=== PATIENT | male | born 1985 | race Caucasian/White ===

== ENCOUNTER 2020-11-08 04:20 | Inpatient (IN) | payer MEDICAID, SELFPAY ==
[2020-11-08] VITALS (9 sets, daily range): BP systolic 104–137; BP diastolic 52–83; PULSE 56–88; RESP 16–22; TEMP 36.3–37.1; O2SAT 96–99; BMI 20.9
--- NOTE | 2020-11-08 | ECG_ITS ---
Test Reason : CP Blood Pressure : / mmHG Vent. Rate : 082 BPM Atrial Rate : 082 BPM P-R Int : 168 ms QRS Dur : 106 ms QT Int : 370 ms P-R-T Axes : 065 046 009 degrees QTc Int : 432 ms Normal sinus rhythm Possible Left atrial enlargement Incomplete right bundle branch block Borderline ECG No previous ECGs available Referred By: Lisa Hoover Electronically Signed By:TYRA AL MD
--- NOTE | ~2020-11-08 | CT_ITS ---
EXAMINATION: CT ANGIOGRAM OF THE CHEST WITH AND WITHOUT CONTRAST (CT PULMONARY ANGIOGRAM FOR PE) CLINICAL INFORMATION: Chest pain COMPARISON: None TECHNIQUE: Prior to contrast administration, noncontrast localization images were obtained. Subsequently, multidetector volumetric imaging was performed from the thoracic inlet to below the diaphragms following the administration of 80 mL Omnipaque 350 intravenous contrast. No contrast reaction reported Sagittal, coronal, and MIP oblique sagittal reformatted images were obtained on the CT workstation, uploaded to PACS, and reviewed. This CT examination was performed using dose optimization techniques as appropriate, variously including the following: *Automated exposure control *Adjustment of mA and/or kV according to patient size (this includes techniques or standardized protocols for targeted exams where dose is matched to indication/reason for exam; i.e. extremities or head) *Use of iterative reconstruction technique Total exam dose-length product 302 mGy-cm FINDINGS: QUALITY OF STUDY/CONTRAST BOLUS: Satisfactory. PULMONARY ARTERIES: No central or segmental pulmonary emboli. THORACIC AORTA: No aneurysm or dissection. LUNG: The lungs are well-expanded with groundglass attenuation seen in the right lower lobe laterally along the subpleural segment. No consolidation, mass or pulmonary nodule seen. PLEURA: No pleural effusion or pneumothorax. MEDIASTINUM: Normal heart size. No pericardial effusion. No hilar or mediastinal lymphadenopathy. No evidence of septal bowing or right heart strain. CHEST WALL/AXILLA: No axillary or internal mammary lymph nodes seen. OSSEOUS STRUCTURES: No acute or suspicious osseous abnormality. UPPER ABDOMEN: The liver is diffusely attenuated but no focal lesion seen. Spleen, bilateral adrenal glands appears unremarkable. No reflux of contrast into the hepatic veins to suggest elevated right heart pressures. CT/CT angio chest PE protocol IMPRESSION: No evidence of PE. No evidence of aortic dissection or aneurysm. Unusual shape groundglass attenuation seen in right lower lobe. Question developing infiltrate, contusion versus inflammatory process. Any history of trauma. VTE: negative
--- NOTE | ~2020-11-08 | XR_ITS ---
EXAMINATION: XR CHEST CLINICAL INFORMATION: Shortness of breath COMPARISON: None TECHNIQUE: Frontal view of the chest was obtained. FINDINGS: Cardiac and mediastinal contours are normal. Pulmonary vasculature is unremarkable. Lungs are clear. No consolidation, pneumothorax, or pleural effusion. No acute osseous findings. XR/XR chest 1V IMPRESSION: Unremarkable examination.
--- NOTE | 2020-11-08 04:45 | ED.CHESTPAIN ---
HPI - Chest Pain General Chief Complaint: Chest Pain Stated Complaint: Back pain Time Seen by Provider: 11/08/20 04:43 History of Present Illness HPI narrative: 35-year-old male presents today with having pain to the right posterior chest. The pain is been ongoing for few days. It is worse with movement or deep inspiration. History of blood clots in the past. Patient claims that caused him to lose his arm on the right side. Patient is post be on Eliquis. He has been out of his medication for few months now. Recently moved from [place]. Now has insurance in [place]. No fever no chills. No diaphoresis. Positive chest pain. No history of coronary artery disease. No history of diabetes, hypertension, high cholesterol, smoking. No history of recreational drug use no history of IV drug use Related Data Allergies Allergy/AdvReac Type Severity Reaction Status Date / Time No Known Allergies Allergy Verified 11/08/20 04:31 Review of Systems Review of Systems: Constitutional: No Weight loss, No Fever, No Chills, No Night Sweats, No Fatigue, No Malaise ENT/Mouth: No Hearing loss, No Ear Pain, No Nasal Congestion, No Sinus Pain, No Hoarseness, No sore throat, No Rhinorrhea, No Swallowing Difficulty Eyes: No Eye Pain, No Swelling, No Redness, No Foreign Body, No Discharge, No Vision Changes Cardiovascular: No Chest Pain, No SOB, No Dyspnea on Exertion, No Orthopnea, No Edema, No Palpitations Respiratory: Positive chest pain on right posterior back Gastrointestinal: No Nausea, No Vomiting, No Diarrhea, No Constipation, No abdominal Pain, No Hematochezia, No Melena Genitourinary: no irregular bleeding, No Dysuria, No Urinary Frequency, No Hematuria, No Urinary Incontinence, No Urgency, No Flank Pain, No Urinary Flow Changes, No Hesitancy Musculoskeletal: No joint pain, No Myalgias, No Joint Swelling Skin: No Skin Lesions, No rash Neuro: No Weakness, No Numbness, No Paresthesias, No Loss of Consciousness, No Dizziness, No Headache Psych: No Anxiety/Panic, No Depression, No SI/HI/AH/VH, No Social Issues, Heme/Lymph: No Bruising, No Bleeding,No Lymphadenopathy Endocrine: No Polyuria, No Polydipsia, No Temperature Intolerance [facility] Past Medical History Attestation statement: The following information was validated with the patient. Medical History Amputation of arm Clotting disorder Surgical History History of lung surgery Physical Exam Vital Signs: Vital Signs: Last Vital Signs Temp 98.8 F 11/08/20 04:32 Pulse 78 11/08/20 06:00 Resp 22 H 11/08/20 06:00 BP 126/75 11/08/20 06:00 Pulse Ox 99 11/08/20 06:00 Body Mass Index 20.9 Appearance: Alert. Oriented X3. No acute distress. Eyes: Pupils equal, round and reactive to light. ENT: Pharynx normal. Neck: Normal inspection. Neck supple. No lymph nodes noted. No crepitus CVS: Normal heart rate and rhythm. Pulses normal. Normal S1 and S2 Respiratory: No respiratory distress. Breath sounds normal. No Wheezing. No rales Abdomen: Soft and nontender. No rigidity. No distention. good BS x4 Skin: Skin warm and dry. Normal skin color. Normal skin turgor. Extremities: No lower extremity edema. Neurovascular intact to all extremities. No Lacerations. No Rash Neuro: Oriented X 3. No motor deficit. No sensory deficit. Moving all extermities. No slurred speech Procedures Central Line Placement Right Femoral: Time Out Performed: Yes MD Prep: mask, gown, gloves and other Central Line Prep: Povidone-Iodine 1% Local Anesthetic: lidocaine 1% Amount of anesthesia used (mL): 5 Post Procedure: sutured in place Patient Tolerated Procedure: well Complications: none MDM - Chest Pain MDM Narrative Medical decision making narrative: Positive chest pain with a history of blood clots. Will get a CTA of the chest to rule out the possibility of PE. Labs were drawn troponin drawn. Patient's EKG showed a sinus pattern heart rate was 80 VT QRS QT within normal limits there is T-wave inversion in lead 3. incomplete right bundle backed box noted. Chest x-ray did not show any acute evidence of pneumonia, pneumothorax. Lab Data Result diagrams: 11/08/20 06:37 11/08/20 06:37 Labs: Lab Results 11/08/20 11/08/20 Range/Units 06:37 06:40 WBC 10.7 (4.8-10.8) X10*3/uL RBC 3.60 L (4.60-5.80) X10*6/uL Hgb 11.5 L (14.0-18.0) g/dl Hct 34.4 L (42-52) % MCV 95.6 (80-98) fL MCH 31.9 (27.0-33.0) pg MCHC 33.4 (31.0-36.0) g/dl RDW 12.3 (11.0-16.0) % Plt Count 250 (160-400) X10*3/uL MPV 8.7 L (9.4-12.4) fL Immature Gran % (Auto) 0.2 (0.0-0.4) % Neut % (Auto) 72.6 (45-73) % Lymph % (Auto) 15.2 L (20-40) % [place] % (Auto) 10.9 (2-11) % Eos % (Auto) 0.7 (0-4) % Baso % (Auto) 0.4 (0-2) % Lymph # (Auto) 1.6 (1.2-4.9) X10*3/uL [place] # (Auto) 1.2 (0.1-1.2) X10*3/uL Eos # (Auto) 0.1 (0.0-0.4) X10*3/uL Baso # (Auto) 0.0 (0.0-0.2) X10*3/uL Abs Immat Gran (auto) 0.02 (0.00-0.03) X10*3/uL Absolute Neuts (auto) 7.8 (2.0-8.3) X10*3/uL Absolute Nucleated RBC 0.000 (0.0-0.012) X10*3/uL Nucleated RBC % (auto) 0.0 (0.0-0.2) /100WBC Urine Color YELLOW Urine Appearance CLEAR Urine pH 6.0 (5.0-8.0) Ur Specific [place] 1.020 (1.005-1.025) Urine Protein NEG (NEG-TRACE) MG/DL Urine Glucose (UA) NEG (NEG) MG/DL Urine Ketones 5 (NEG) MG/DL Urine Blood NEG (NEG) Urine Nitrite NEG (NEG) Ur Leukocyte Esterase NEG (NEG)
[2020-11-08] MEDS: HYDROmorphone HCl 0.5 MG/0.5 ML SYRINGE IVPUSH ×2 (06:14→19:45)
[2020-11-08 06:45] LABS: MANUAL DIFF FLAG NO
[2020-11-08 06:47] LABS: Basophils Percent Auto 0.4 % (0-2); Eosinophils Absolute Auto 0.1 X10*3/uL (0.0-0.4); Eosinophils Percent Auto 0.7 % (0-4); Hematocrit 34.4 % (42-52); Hemoglobin 11.5 g/dl (14.0-18.0); Imm Gran Abs Auto 0.02 X10*3/uL (0.00-0.03); Imm Gran Pct Auto 0.2 % (0.0-0.4); Lymphocytes Absolute Auto 1.6 X10*3/uL (1.2-4.9); Lymphocytes Percent Auto 15.2 % (20-40); Mean Corpuscular HGB Conc 33.4 g/dl (31.0-36.0); Mean Corpuscular Hemoglobin 31.9 pg (27.0-33.0); Mean Corpuscular Volume 95.6 fL (80-98); Mean Platelet Volume 8.7 fL (9.4-12.4); Monocytes Absolute Auto 1.2 X10*3/uL (0.1-1.2); Monocytes Percent Auto 10.9 % (2-11); Neutrophils Absolute Auto 7.8 X10*3/uL (2.0-8.3); Neutrophils Percent Auto 72.6 % (45-73); Platelet Count 250 X10*3/uL (160-400); Red Cell Distribution Width 12.3 % (11.0-16.0); White Blood Count 10.7 X10*3/uL (4.8-10.8)
[2020-11-08 06:48] LABS: Glucose Urine UA NEG (NEG); Leukocyte Esterase Urine NEG (NEG); Nitrite Urine NEG (NEG); Urine Blood NEG (NEG); Urine Ketones 5 MG/DL (NEG); Urine Protein NEG (NEG-TRACE)
[2020-11-08 06:50] LABS: Appearance Urine CLEAR; Color Urine YELLOW
[2020-11-08 07:00] LABS: INTERNATIONAL NORM RATIO 1.4 (0.9-1.1); Prothrombin Time 16.2 SEC (10.8-13.0)
[2020-11-08] MEDS: HYDROmorphone HCl 1 MG/ML SYRINGE IVPUSH ×2 (07:10→09:35)
[2020-11-08 07:14] LABS: Troponin-I High Sensitivity < 3.5 ng/L (<3.5-35.0)
[2020-11-08 07:15] LABS: Anion Gap 10 (12-20); Blood Urea Nitrogen 16 mg/dL (9-16); Calcium 9.1 mg/dL (8.4-10.2); Carbon Dioxide 26 mmol/L (22-29); Chloride 104 mmol/L (96-108); Creatinine Clr Calc Pharmacy 134.8; Estimated Glomerular Filt Rate > 60; Glucose Random 112 mg/dL (60-115); Potassium 3.8 mmol/L (3.3-5.1); Sodium 136 mmol/L (135-145)
[2020-11-08 07:18] LABS: Alanine Aminotransferase 15 U/L (0-40); Albumin Level 4.3 g/dL (3.5-5.0); Alkaline Phosphatase 54 U/L (39-117); Aspartate Amino Transferase 18 U/L (5-37); Bilirubin Direct 0.4 mg/dL (0.0-0.5); Bilirubin Total 1.1 mg/dL (0.0-1.0); Total Protein 6.8 g/dL (6.5-8.0)
[2020-11-08 07:22] LABS: D Dimer 507 NG/ML
[2020-11-08] MEDS: iohexoL 350 MG/ML 100 ML INFUS..BTL IV (08:41)
[2020-11-08] MEDS: Ketorolac Tromethamine 30 MG/ML VIAL IVPUSH (10:23)
[2020-11-08] MEDS: cefTRIAXone sodium 1 GM in 0.9 % Sodium Chloride 50 ML IV ×2 (10:24→21:48)
[2020-11-08] MEDS: vancomycin HCL 1,250 MG in 0.9 % Sodium Chloride 250 ML 166.67 MG IV ×2 (10:27→22:17)
[2020-11-08] MEDS: 0.9 % Sodium Chloride 1,000 ML 999 ML IV (10:31)
[2020-11-08 10:43] LABS: COVID-19 Test Negative (Negative)
[2020-11-08 10:58] LABS: Lactic Acid 0.8 mmol/L (0.5-2.0)
--- NOTE | 2020-11-08 11:15 | PM.IMHP ---
History of Present Illness Date of Service: 11/08/20 Chief Complaint: right chest pain 35M presented with Right-sided chest pain for 3 days. Pain is worse on deep inspiration. Is 10/10. Relieved by opiates. Denies shortness of breath, cough, fever, chills. Patient uses IV heroin. 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 in ED noted to have RLL opacity on CT c/w developing pneumonia. Review of Systems Review of Systems: Constitutional: Denies fever, denies Chills Eyes: denies blurry vision ENT: denies sore throat CVS: chest pain Respiratory: Denies dyspnea GI: no abdominal pain : denies dysuria MSK: denies neck pain Skin: denies rash Neuro: denies specific motor weakness Psych: denies suicidal ideation Endocrine: denies heat/cold intoleratnce Hematologic: denies easy bleeding Allergy: denies hives [facility] Medical History (Updated 11/08/20 @ 11:23 by Hussain Sousa MD) Amputation of arm Family history: reviewed and not pertinent Surgical History History of lung surgery Social History (Updated 11/08/20 @ 11:24 by Hussain Sousa MD) Alcohol intake: never Patient Tobacco Use Status: Current everyday Tobacco user Substance Use Type: IV Drugs Advance Directives: No Meds Allergies Allergy/AdvReac Type Severity Reaction Status Date / Time No Known Allergies Allergy Verified 11/08/20 04:31 Active Medications: Current Medications Generic Name Dose Route Start Last Admin Trade Name Freq PRN Reason Stop Dose Admin Vancomycin HCl 1,250 mg/ 250 mls @ 166.667 mls/hr 11/08/20 09:57 11/08/20 10:27 Sodium Chloride IV 11/08/20 11:26 166.67 mls/hr ONCE ONE Administration Vancomycin HCl 1,250 mg/ 250 mls @ 166.667 mls/hr 11/08/20 22:00 Sodium Chloride IV Q12H [facility] Pharmacy Consult 1 each 11/08/20 09:57 Consult Rx Vancomycin Dosing MISCELLANE DAILY PRN Consult order Home Medications Medication Instructions Recorded Confirmed Last Taken Type No Known Home Meds 11/08/20 11/08/20 Unknown History Physical Exam Vital Signs and Narrative: Vital Signs: Last Vital Signs Temp 98.8 F 11/08/20 04:32 Pulse 88 11/08/20 09:38 Resp 22 H 11/08/20 09:38 BP 118/52 L 11/08/20 09:38 Pulse Ox 99 11/08/20 06:00 Body Mass Index 20.9 General: appears uncomfortable HEENT: atraumatic Neck: normal to visual inspection CVS: S1, S2, RRR Resp: CTA bilateral Chest: non tender GI: soft, non tender, non distended : no CVA tenderness Skin: no rashes Extremities: no edema Neuro: Oriented X3, grossly intact Psych: cooperative Results Labs CBC and Chem 7: 11/08/20 06:37 11/08/20 06:37 Labs: Laboratory Results - last 24 hr 11/08/20 11/08/20 11/08/20 06:37 06:37 06:37 MCV 95.6 MCH 31.9 MCHC 33.4 RDW 12.3 Plt Count 250 MPV 8.7 L Immature Gran % (Auto) 0.2 Neut % (Auto) 72.6 Lymph % (Auto) 15.2 L [place] % (Auto) 10.9 Eos % (Auto) 0.7 Baso % (Auto) 0.4 Lymph # (Auto) 1.6 [place] # (Auto) 1.2 Eos # (Auto) 0.1 Baso # (Auto) 0.0 Abs Immat Gran (auto) 0.02 Absolute Neuts (auto) 7.8 Absolute Nucleated RBC 0.000 Nucleated RBC % (auto) 0.0 PT 16.2 H INR 1.4 H D-Dimer 507 Anion Gap Estim Creat Clear Calc Estimated GFR Random Glucose Lactic Acid Calcium Total Bilirubin 1.1 H Direct Bilirubin 0.4 AST 18 ALT 15 Alkaline Phosphatase 54 Troponin I High Sens Total Protein 6.8 Albumin 4.3 Urine Color Urine Appearance Urine pH Ur Specific [place] Urine Protein Urine Glucose (UA) Urine Ketones Urine Blood Urine Nitrite Ur Leukocyte Esterase COVID-19 (PRASANNA) COVID-19 Clin Com 11/08/20 11/08/20 11/08/20 06:37 06:37 06:40 MCV MCH MCHC RDW Plt Count MPV Immature Gran % (Auto) Neut % (Auto) Lymph % (Auto) [place] % (Auto) Eos % (Auto) Baso % (Auto) Lymph # (Auto) [place] # (Auto) Eos # (Auto) Baso # (Auto) Abs Immat Gran (auto) Absolute Neuts (auto) Absolute Nucleated RBC Nucleated RBC % (auto) PT INR D-Dimer Anion Gap 10 L Estim Creat Clear Calc 134.8 Estimated GFR > 60 Random Glucose 112 Lactic Acid Calcium 9.1 Total Bilirubin Direct Bilirubin AST ALT Alkaline Phosphatase Troponin I High Sens < 3.5 Total Protein Albumin Urine Color YELLOW Urine Appearance CLEAR Urine pH 6.0 Ur Specific [place] 1.020 Urine Protein NEG Urine Glucose (UA) NEG Urine Ketones 5 Urine Blood NEG Urine Nitrite NEG Ur Leukocyte Esterase NEG COVID-19 (PRASANNA) COVID-19 Clin Com 11/08/20 11/08/20 10:20 10:20 MCV MCH MCHC RDW Plt Count MPV Immature Gran % (Auto) Neut % (Auto) Lymph % (Auto) [place] % (Auto) Eos % (Auto) Baso % (Auto) Lymph # (Auto) [place] # (Auto) Eos # (Auto) Baso # (Auto) Abs Immat Gran (auto) Absolute Neuts (auto) Absolute Nucleated RBC Nucleated RBC % (auto) PT INR D-Dimer Anion Gap Estim Creat Clear Calc Estimated GFR Random Glucose Lactic Acid 0.8 Calcium Total Bilirubin Direct Bilirubin AST ALT Alkaline Phosphatase Troponin I High Sens Total Protein Albumin Urine Color Urine Appearance Urine pH Ur Specific [place] Urine Protein Urine Glucose (UA) Urine Ketones Urine Blood Urine Nitrite Ur Leukocyte Esterase COVID-19 (PRASANNA) Negative COVID-19 Clin Com See Note Imaging Radiologist's Impressions: Impressions Chest CTA 11/08/20 04:43 IMPRESSION: No evidence of PE. No evidence of aortic dissection or aneurysm. Unusual shape groundglass attenuation seen in right lower lobe. Question developing infiltrate, contusion versus inflammatory process. Any history of trauma. VTE: negative Chest X-Ray 11/08/20 04:43 IMPRESSION: Unremarkable examination. Assessment and Plan (1) Polysubstance (including opioids) dependence with physiological dependence: Status: Acute 35M presented with right sided chest pain, found to have pneuomnia pnuemonia with concern for systemic infection given IVDA vanc, ceftriaxone follow up cultures opioid dependence addication eval check hcv, hiv Quality Stroke Does the patient have a stroke diagnosis?: No VTE Prior VTE?: No VTE Risk Level:: Medical - moderate - high VTE Device Contraindication: Treatment Not Indicated VTE Drug Contraindication: N/A - Med Ordered
--- NOTE | 2020-11-08 13:36 | MHC.CM.PN ---
Attempted to meet with patient in regards to discharge planning. Patient is currently sleeping. Will attempt to meet again. Continue to monitor for d/c needs.
[2020-11-08] MEDS: Morphine Sulfate 2 MG/ML CARTRIDGE IVPUSH ×3 (14:06→22:34)
--- NOTE | 2020-11-08 14:58 | PC.NURSE ---
CALL TO GIVE REPORT- STATES THEY ARE IN REPORT NO ANSWER
--- NOTE | 2020-11-08 15:14 | PC.NURSE ---
Gave report to Aundrea on Med surg
--- NOTE | 2020-11-08 16:09 | HO.ADDICT_ITS ---
History of Present Illness Date of Service: 11/08/2020 Chief Complaint: pneumonia Reason for Consult: Opioid use disorder Requesting physician: Hussain Sousa Discussed with referring provider: Yes Sources of Information: patient interviewed and chart reviewed HPI Narrative: patient is a 35-year-old male with history of opioid use disorder pending admission for pneumonia. Consult requested to evaluate and treat opioid use disorder. Patient seen in room 13 of the main ED, he was currently awaiting transfer up to medical floor. Patient was pacing around the room and grimacing upon this bond writer's arrival. Reporting significant pain and discomfort lower left back. He recently received morphine which she reports was ineffective. Brief substance use history ( due to patient's level of physical discomfort ): - patient reports that he is currently using between 1-2 bundles of heroin daily. He states he will use intranasal or intravenous. - patient denies any alcohol or cocaine use. - patient reports he was previously on Suboxone, denies any history of meth adone. - reports last use was several hours prior to presenting to the emergency department. Past Psychiatric History: Not reviewed Medical Evaluation Reviewed: Yes Personal & Social History: pending review -- per H&P it appears patient is new to this area had previously been living in [place]. Review of Systems Constitutional: Reports as per HPI, Reports body ache(s) and Reports malaise Gastrointestinal: Denies diarrhea, Denies loose stools, Denies nausea and Denies vomiting Diagnostics Vital Signs (24Hr): Vital Signs - 24 hr 11/08/20 04:32 11/08/20 06:00 11/08/20 09:38 Temperature 98.8 F Pulse Rate 84 78 88 Respiratory Rate 18 22 H 22 H Blood Pressure 110/65 126/75 118/52 L Pulse Oximetry 96 99 11/08/20 14:06 11/08/20 14:11 11/08/20 15:41 Temperature 97.4 F Pulse Rate 85 84 Respiratory Rate 16 18 20 Blood Pressure 133/76 104/59 L Pulse Oximetry 97 Body Mass Index 20.9 Labs Results: 11/08/20 06:37 11/08/20 06:37 Labs: Laboratory Results - last 48 hr 11/08/20 11/08/20 11/08/20 06:37 06:37 06:37 WBC 10.7 RBC 3.60 L Hgb 11.5 L Hct 34.4 L MCV 95.6 MCH 31.9 MCHC 33.4 RDW 12.3 Plt Count 250 MPV 8.7 L Immature Gran % (Auto) 0.2 Neut % (Auto) 72.6 Lymph % (Auto) 15.2 L [place] % (Auto) 10.9 Eos % (Auto) 0.7 Baso % (Auto) 0.4 Lymph # (Auto) 1.6 [place] # (Auto) 1.2 Eos # (Auto) 0.1 Baso # (Auto) 0.0 Abs Immat Gran (auto) 0.02 Absolute Neuts (auto) 7.8 Absolute Nucleated RBC 0.000 Nucleated RBC % (auto) 0.0 PT 16.2 H INR 1.4 H D-Dimer 507 Sodium Potassium Chloride Carbon Dioxide Anion Gap BUN Creatinine Estim Creat Clear Calc Estimated GFR Random Glucose Lactic Acid Calcium Total Bilirubin 1.1 H Direct Bilirubin 0.4 AST 18 ALT 15 Alkaline Phosphatase 54 Troponin I High Sens Total Protein 6.8 Albumin 4.3 Urine Color Urine Appearance Urine pH Ur Specific [place] Urine Protein Urine Glucose (UA) Urine Ketones Urine Blood Urine Nitrite Ur Leukocyte Esterase COVID-19 (PRASANNA) COVID-[employer] 11/08/20 11/08/20 11/08/20 06:37 06:37 06:40 WBC RBC Hgb Hct MCV MCH MCHC RDW Plt Count MPV Immature Gran % (Auto) Neut % (Auto) Lymph % (Auto) [place] % (Auto) Eos % (Auto) Baso % (Auto) Lymph # (Auto) [place] # (Auto) Eos # (Auto) Baso # (Auto) Abs Immat Gran (auto) Absolute Neuts (auto) Absolute Nucleated RBC Nucleated RBC % (auto) PT INR D-Dimer Sodium 136 Potassium 3.8 Chloride 104 Carbon Dioxide 26 Anion Gap 10 L BUN 16 Creatinine 0.71 Estim Creat Clear Calc 134.8 Estimated GFR > 60 Random Glucose 112 Lactic Acid Calcium 9.1 Total Bilirubin Direct Bilirubin AST ALT Alkaline Phosphatase Troponin I High Sens < 3.5 Total Protein Albumin Urine Color YELLOW Urine Appearance CLEAR Urine pH 6.0 Ur Specific [place] 1.020 Urine Protein NEG Urine Glucose (UA) NEG Urine Ketones 5 Urine Blood NEG Urine Nitrite NEG Ur Leukocyte Esterase NEG COVID-19 (PRASANNA) COVID-19 [employer] 11/08/20 11/08/20 10:20 10:20 WBC RBC Hgb Hct MCV MCH MCHC RDW Plt Count MPV Immature Gran % (Auto) Neut % (Auto) Lymph % (Auto) [place] % (Auto) Eos % (Auto) Baso % (Auto) Lymph # (Auto) [place] # (Auto) Eos # (Auto) Baso # (Auto) Abs Immat Gran (auto) Absolute Neuts (auto) Absolute Nucleated RBC Nucleated RBC % (auto) PT INR D-Dimer Sodium Potassium Chloride Carbon Dioxide Anion Gap BUN Creatinine Estim Creat Clear Calc Estimated GFR Random Glucose Lactic Acid 0.8 Calcium Total Bilirubin Direct Bilirubin AST ALT Alkaline Phosphatase Troponin I High Sens Total Protein Albumin Urine Color Urine Appearance Urine pH Ur Specific [place] Urine Protein Urine Glucose (UA) Urine Ketones Urine Blood Urine Nitrite Ur Leukocyte Esterase COVID-19 (PRASANNA) Negative COVID-19 Clin Com See Note Imaging Radiology Impressions: ITS Impressions Chest CTA 11/08/20 04:43 IMPRESSION: No evidence of PE. No evidence of aortic dissection or aneurysm. Unusual shape groundglass attenuation seen in right lower lobe. Question developing infiltrate, contusion versus inflammatory process. Any history of trauma. VTE: negative Chest X-Ray 11/08/20 04:43 IMPRESSION: Unremarkable examination. Mental Status Exam Mental Status Exam Patient Appearance: Appropriate Patient Orientation: Person, Place, Time and Situation Level of Consciousness: Awake, Appropriate, Restless and Alert Patient Behavior: Appropriate, Anxious and Pacing Mood Description: Anxious Affect Description: Anxious Ability to Follow Directions: Excellent Speech Pattern: Clear Hallucinations: None Thought Process: Intact Thought Content: positive for Intact Judgement: Fair Medications Medications Current Medications Generic Name Dose Route Start Last Admin Trade Name Kena PRN Reason Stop Dose Admin Acetaminophen 650 mg 11/08/20 11:22 Acetaminophen 325 Mg Tablet PO Q6H PRN Pain, Mild (Pain Scale 1-3) Vancomycin HCl 1,250 mg/ 250 mls @ 166.667 mls/hr 11/08/20 22:00 Sodium Chloride IV Q12H [facility] Ceftriaxone Sodium 1 gm/ 50 mls @ 100 mls/hr 11/08/20 22:00 Sodium Chloride IV Q12H TOM Methadone HCl 15 mg 11/08/20 15:33 Methadone Hcl 5 Mg Tablet PO 11/08/20 15:34 ONCE ONE Morphine Sulfate 2 mg 11/08/20 11:22 11/08/20 14:06 Morphine Sulfate 2 Mg/Ml Cartridge IVPUSH 2 mg Q3H PRN Administration pain Pharmacy Consult 1 each 11/08/20 09:57 Consult Rx Vancomycin Dosing MISCELLANE DAILY PRN Consult order Rivaroxaban 10 mg 11/09/20 09:00 Rivaroxaban 10 Mg Tablet PO DAILY TOM Sodium Chloride 3 ml 11/08/20 16:00 0.9 % Sodium Chloride Flush 3 Ml Syringe IVFLUSH QSHIFT TOM Allergies Allergies Allergy/AdvReac Type Severity Reaction Status Date / Time No Known Allergies Allergy Verified 11/08/20 04:31 Assessment & Plan Assessment & Plan (1) Opioid use disorder: Status: Acute Code(s): F11.99 - Opioid use, unspecified with unspecified opioid-induced disorder Recommendations: * Discuss treatment options, Suboxone not an option at this time given need for pain medication. * Patient agreeable to trialing methadone. Denies any cardiac history. Will start with 15 mg now and if necessary could receive additional 5-10 mg later this evening. * Will reassess in the morning and obtain better substance use history Greater than 50% of the session was spent on counseling and/or coordination of care [facility] Past Medical History Medical History (Updated 11/08/20 @ 16:15 by Shannon Macias CNP) Amputation of arm Family History Family history: reviewed and not pertinent Surgical History Surgical History History of lung surgery Social History Social History (Updated 11/08/20 @ 11:24 by Hussain Sousa MD) Household Members: Friend(s) Housing: House Alcohol intake: never Patient Tobacco Use Status: Current everyday Tobacco user Tobacco use type: Cigarette Cigarette Packs Per Day: 0.3 Cigarettes Per Day: 6.0 Smoked in Last 30 Days: Yes Patient Interested in Nicotine Replacement: No Use of substances other than those prescribed or required for medical reasons: Yes Substance Use Type: Heroin Substance Use Frequency: Daily Last Used Substance: Just Prior to Admission Currently Displaying Signs/Symptoms of Drug Intoxication Withdrawal: No Any prior treatment program specific to substance use: Yes Have you been hit, kicked, punched, or otherwise hurt by someone within the past year? If so, by whom?: No Do you feel safe in your current relationship?: No Current Relationship Is there a partner from a previous relationship who is making you feel unsafe now?: No Are you made to feel afraid or neglected: No Advance Directives: No Do you have thoughts of harming others: None Do you have a plan to hurt others: No Plan Recently lost weight without trying: No Nutrition Risks: No Nutritional Risk Poor oral hygiene: No
[2020-11-08] MEDS: clonazePAM 0.5 MG TABLET PO ×2 (16:44→22:51)
[2020-11-08] MEDS: hydrOXYzine HCL 25 MG TABLET PO (16:45)
[2020-11-08] MEDS: 0.9 % Sodium Chloride Flush 3 ML SYRINGE IVFLUSH (18:28)
[2020-11-08] MEDS: Ibuprofen 400 MG TABLET PO (18:58)
--- NOTE | 2020-11-08 19:19 | PC.NURSE ---
pt very angry,restless, pacing around his room ,hitting objects in his room. Stated that he is very unease because of the pain. Security was called to the pt room to reinforce the safety. Dr Lars tyler contacted, new meds ordered:cloanzepam,atarax,Ibuprofen. One time Methadone was given as per Shannon Macias NP. Pt's anxiety subsided, cooperative with the nursing staff
[2020-11-08] MEDS: Lidocaine 4 % Patch ADH..PATCH 1 PATCH TRANSDERMA (19:44)
[2020-11-08] MEDS: Acetaminophen 325 MG TABLET 650 MG PO (22:51)
[2020-11-09] VITALS (10 sets, daily range): BP systolic 103–120; BP diastolic 56–86; PULSE 67–88; RESP 18–20; TEMP 36.6–37.1; O2SAT 97–99
[2020-11-09] MEDS: Morphine Sulfate 2 MG/ML CARTRIDGE IVPUSH ×6 (01:33→22:31)
[2020-11-09] MEDS: HYDROmorphone HCl 1 MG/ML SYRINGE IVPUSH ×2 (02:48→23:41)
[2020-11-09] MEDS: LORazepam 2 MG/ML VIAL 1 MG IVPUSH (03:44)
--- NOTE | 2020-11-09 04:11 | PC.NURSE ---
Addendum entered by Gopi Mcdonald RN 11/09/20 06:12: camera observer called r/t patient bathroom alone..patient found naked taking a shower...assisted from shower..instructed not to shower d/t tlc right groin and peripheral prn adaptor...back to bed...tlc dressing redressed...site remains patent..am lab work drawn via tlc Addendum entered by Gopi Mcdonald RN 11/09/20 04:17: LAB REPORTS BLOOD CULTURES X2- GPC IN CLUSTERS...RECEIVING VANCOMYCIN/ROCEPHIN... UPDATED Original Note: CARE ASSUMED 23:15...AWAKE...ALERT..ORIENTED X3...RESPIRATIONS EASY ON ROOM AIR...MED-SURG STATUS...C/O PERSISTANT -02/20 RIGHT LOWER CHEST PAIN WORSENED WITH COUGH/INSPIRATION...MEDICATED PRN MORPHINE 01:33 WITH MINIMAL EFFECT PER PATIENT...ANXIOUS R/T TO PERSISTANT PAIN...PRN ATARAX GIVEN 02:15...CONTINUES TP C/O PERSISTANT PAIN...DR MCCLELLAN UPDATED..MEDICATED WITH DILAUDID 1 MG IV X1 WITH TRANSIENT EFFECT....DOZED APPROX 45 THEN AWAKE...INITIALLY HAD DECLINED THEN ACCEPTED ATIVAN 1MG IV X1 FOR RESTLESNESS....BRIEFLY NAPPED..NOW AWAKE...REMAINS ALERT...FURTHER PAIN MEDS PER JUL PER
[2020-11-09] MEDS: Acetaminophen 325 MG TABLET 650 MG PO ×2 (06:02→12:30)
[2020-11-09] MEDS: clonazePAM 0.5 MG TABLET PO ×3 (06:03→22:31)
[2020-11-09] MEDS: Ibuprofen 400 MG TABLET PO ×3 (06:03→17:12)
[2020-11-09 06:33] LABS: Hematocrit 30.4 % (42-52); Hemoglobin 10.5 g/dl (14.0-18.0); Mean Corpuscular HGB Conc 34.5 g/dl (31.0-36.0); Mean Corpuscular Hemoglobin 32.4 pg (27.0-33.0); Mean Corpuscular Volume 93.8 fL (80-98); Platelet Count 258 X10*3/uL (160-400); Red Blood Count 3.24 X10*6/uL (4.60-5.80); Red Cell Distribution Width 12.2 % (11.0-16.0); White Blood Count 9.6 X10*3/uL (4.8-10.8)
[2020-11-09 06:50] LABS: Anion Gap 12 (12-20); Blood Urea Nitrogen 10 mg/dL (9-16); Calcium 8.8 mg/dL (8.4-10.2); Carbon Dioxide 23 mmol/L (22-29); Chloride 106 mmol/L (96-108); Creatinine Clr Calc Pharmacy 159.5; Estimated Glomerular Filt Rate > 60; Glucose Fasting 116 mg/dL (60-99); Potassium 3.2 mmol/L (3.3-5.1); Sodium 138 mmol/L (135-145)
[2020-11-09 07:00] LABS: HIV AB/AG Nonreactive (Nonreactive); HIV Num 1 0.09 S/CO (0.00-0.99)
[2020-11-09 07:01] LABS: ~HepC Num1 0.08 S/CO (0.00-0.79); ~Hepatitis C Antibody Nonreactive (Nonreactive)
[2020-11-09] MEDS: Rivaroxaban 10 MG TABLET PO (10:02)
[2020-11-09] MEDS: 0.9 % Sodium Chloride Flush 3 ML SYRINGE IVFLUSH ×2 (10:04→15:21)
[2020-11-09] MEDS: cefTRIAXone sodium 1 GM in 0.9 % Sodium Chloride 50 ML IV ×2 (10:04→22:32)
[2020-11-09] MEDS: Lidocaine 4 % Patch ADH..PATCH 1 PATCH TRANSDERMA (10:05)
[2020-11-09] MEDS: vancomycin HCL 1,250 MG in 0.9 % Sodium Chloride 250 ML 166.67 MG IV ×2 (10:08→23:41)
[2020-11-09] MEDS: hydrOXYzine HCL 25 MG TABLET PO (10:58)
--- NOTE | 2020-11-09 10:59 | HO.PM.IMPN ---
Subjective Subjective Date of Service: 11/09/20 Interval History: withdrawl symptoms Cardiovascular Cardiovascular: Reports no additional cardiovascular complaints Gastrointestinal Gastrointestinal: Reports no additional gastrointestinal complaints Physical Exam Vital Signs: Vital Signs: Last Vital Signs Temp 98.7 F 11/09/20 07:52 Pulse 67 11/09/20 07:52 Resp 20 11/09/20 07:52 BP 120/62 11/09/20 07:52 Pulse Ox 97 11/09/20 07:52 Body Mass Index 20.9 General: AO X 3, ill appearing Resp: CTA bilateral CVS: S1,S2,RRR GI: soft, non tender, non distended Neuro: motor grossly intact Psych: appropriate affect Objective Data Current Medications Generic Name Dose Route Start Last Admin Trade Name Freq PRN Reason Stop Dose Admin Acetaminophen 650 mg 11/08/20 11:22 11/09/20 06:02 Acetaminophen 325 Mg Tablet PO 650 mg Q6H PRN Administration Pain, Mild (Pain Scale 1-3) Clonazepam 0.5 mg 11/08/20 16:23 11/09/20 06:03 Clonazepam 0.5 Mg Tablet PO 0.5 mg TID PRN Administration anxiety Hydroxyzine HCl 25 mg 11/08/20 16:23 11/09/20 10:58 Hydroxyzine Hcl 25 Mg Tablet PO 25 mg Q8H PRN Administration Anxiety Vancomycin HCl 1,250 mg/ 250 mls @ 166.667 mls/hr 11/08/20 22:00 11/09/20 10:08 Sodium Chloride IV 166.67 mls/hr Q12H TOM Administration Ceftriaxone Sodium 1 gm/ 50 mls @ 100 mls/hr 11/08/20 22:00 11/09/20 10:04 Sodium Chloride IV 100 mls/hr Q12H TOM Administration Ibuprofen 400 mg 11/08/20 18:44 11/09/20 06:03 Ibuprofen 400 Mg Tablet PO 400 mg TIDWM PRN Administration Pain, Moderate (Pain Scale 4-6 Lidocaine 1 patch 11/08/20 20:00 11/09/20 10:05 Lidocaine 4 % Patch Adh..Patch TRANSDERMA 1 patch DAILY TOM Administration Protocol Methadone HCl 25 mg 11/09/20 09:00 11/09/20 10:02 Methadone Hcl 1 Mg/0.1 Ml Oral.Conc PO 25 mg DAILY TOM Administration Morphine Sulfate 2 mg 11/08/20 11:22 11/09/20 10:57 Morphine Sulfate 2 Mg/Ml Cartridge IVPUSH 2 mg Q3H PRN Administration pain Pharmacy Consult 1 each 11/08/20 09:57 Consult Rx Vancomycin Dosing MISCELLANE DAILY PRN Consult order Rivaroxaban 10 mg 11/09/20 09:00 11/09/20 10:02 Rivaroxaban 10 Mg Tablet PO 10 mg DAILY TMO Administration Sodium Chloride 3 ml 11/08/20 16:00 11/09/20 10:04 0.9 % Sodium Chloride Flush 3 Ml Syringe IVFLUSH 3 ml QSHIFT TOM Administration Labs CBC & Chem 7: 11/09/20 05:24 11/09/20 05:24 Labs: Laboratory Results - last 24 hr 11/09/20 11/09/20 11/09/20 05:24 05:24 05:24 WBC 9.6 RBC 3.24 L Hgb 10.5 L Hct 30.4 L MCV 93.8 MCH 32.4 MCHC 34.5 RDW 12.2 Plt Count 258 MPV 9.0 L Absolute Nucleated RBC 0.000 Nucleated RBC % (auto) 0.0 Sodium 138 Potassium 3.2 L Chloride 106 Carbon Dioxide 23 Anion Gap 12 BUN 10 Creatinine 0.60 Estim Creat Clear Calc 159.5 Estimated GFR > 60 Fasting Glucose 116 H Calcium 8.8 Hepatitis C Ab (EIA) Nonreactive HIV 1&2 Ab/P24 Ag 4thGn 11/09/20 05:24 WBC RBC Hgb Hct MCV MCH MCHC RDW Plt Count MPV Absolute Nucleated RBC Nucleated RBC % (auto) Sodium Potassium Chloride Carbon Dioxide Anion Gap BUN Creatinine Estim Creat Clear Calc Estimated GFR Fasting Glucose Calcium Hepatitis C Ab (EIA) HIV 1&2 Ab/P24 Ag 4thGn Nonreactive Microbiology Microbiology Results: Microbiology 11/08/20 10:20 Blood Culture - Preliminary Blood - Venous 11/08/20 10:20 Blood Culture - Preliminary Blood - Venous Quality Stroke Does the patient have a stroke diagnosis?: No VTE Prior VTE?: No VTE Risk Level:: Medical - moderate - high VTE Device Contraindication: Treatment Not Indicated VTE Drug Contraindication: N/A - Med Ordered Assessment and Plan (1) Opioid use disorder: Status: Acute (2) Bacteremia: Status: Acute Assessment and Plan: 35M presented with right sided chest pain, found to have pneuomnia, now growing GPC in 2/2 blood cultures gram positive bacteremia and pneumonia in setting of IVDA vanc, ceftriaxone follow up cultures, repeat cultures, echo, ID eval opioid dependence with withdrawl started on methadone hcv, hiv negative
--- NOTE | 2020-11-09 12:15 | MHC.RECOVRN ---
T/w checked in with pt after receiving 25 mg methadone at 10AM. Pt reports feeling better and is able to rest. Pt thankful to be feeling less withdrawal symptoms and ability to sleep. Will continue to follow.
--- NOTE | 2020-11-09 13:59 | MHC.CM.PN ---
Addendum entered by Juanita Levine 11/10/20 11:58: CM RETURNED TO SEE PT TO COMPLETE CROWNING INSPECTOR. CM INFORMED BY RN THAT PT HAD LEFT AMA. Addendum entered by Juanita Levine 11/10/20 10:02: CM ATTEMPTED TO SEE PT AGAIN THIS MORNING. PT GETTING AN ECHO. CM WILL RETURN Original Note: CM HAS ATTEMPTED TO SEE PT TWICE THROUGHOUT THE DAY. PT SLEEPING. CM WILL REVISIT
--- NOTE | 2020-11-09 15:28 | PC.NURSE ---
Skin assessment completed today. No skin issues found, skin dry and intact. All documentation matches.
--- NOTE | 2020-11-09 15:29 | PC.NURSE ---
Skin assessment completed today. No skin issues found, skin dry and intact. 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
--- NOTE | 2020-11-09 16:36 | W.PM.IDCN ---
History of Present Illness Data of Consult Service Date: 11/09/20 Requesting physician: Hussain Sousa Primary Care Provider: None Physician HPI Reason for consult: chills He has weakness and chills for a day He uses IV heroin He has some 6/10 lower back pain as well He denies endocarditis Review of Systems Review of Systems: Yes all other systems are reviewed and are negative PMFSH Past Medical History Medical History Amputation of arm Family History Family history: reviewed and not pertinent Surgical History Surgical History History of lung surgery Social History Social History Household Members: Friend(s) Housing: House Alcohol intake: never Patient Tobacco Use Status: Current everyday Tobacco user Tobacco use type: Cigarette Cigarette Packs Per Day: 0.3 Cigarettes Per Day: 6.0 Smoked in Last 30 Days: Yes Patient Interested in Nicotine Replacement: No Use of substances other than those prescribed or required for medical reasons: Yes Substance Use Type: Heroin Substance Use Frequency: Daily Last Used Substance: Just Prior to Admission Currently Displaying Signs/Symptoms of Drug Intoxication Withdrawal: Yes Any prior treatment program specific to substance use: Yes Have you been hit, kicked, punched, or otherwise hurt by someone within the past year? If so, by whom?: No Do you feel safe in your current relationship?: No Current Relationship Is there a partner from a previous relationship who is making you feel unsafe now?: No Are you made to feel afraid or neglected: No Advance Directives: No Do you have thoughts of harming others: None Do you have a plan to hurt others: No Plan Recently lost weight without trying: No Nutrition Risks: No Nutritional Risk Poor oral hygiene: No Meds Allergies Allergy/AdvReac Type Severity Reaction Status Date / Time No Known Allergies Allergy Verified 11/08/20 04:31 Active Medications: Current Medications Generic Name Dose Route Start Last Admin Trade Name Freq PRN Reason Stop Dose Admin Acetaminophen 650 mg 11/08/20 11:22 11/09/20 12:30 Acetaminophen 325 Mg Tablet PO 650 mg Q6H PRN Administration Pain, Mild (Pain Scale 1-3) Clonazepam 0.5 mg 11/09/20 16:12 Clonazepam 0.5 Mg Tablet PO BID PRN anxiety Hydroxyzine HCl 25 mg 11/08/20 16:23 11/09/20 10:58 Hydroxyzine Hcl 25 Mg Tablet PO 25 mg Q8H PRN Administration Anxiety Vancomycin HCl 1,250 mg/ 250 mls @ 166.667 mls/hr 11/08/20 22:00 11/09/20 11:44 Sodium Chloride IV Infused Q12H TOM Infusion Ceftriaxone Sodium 1 gm/ 50 mls @ 100 mls/hr 11/08/20 22:00 11/09/20 11:01 Sodium Chloride IV Infused Q12H TOM Infusion Ibuprofen 400 mg 11/08/20 18:44 11/09/20 12:32 Ibuprofen 400 Mg Tablet PO 400 mg TIDWM PRN Administration Pain, Moderate (Pain Scale 4-6 Lidocaine 1 patch 11/08/20 20:00 11/09/20 10:05 Lidocaine 4 % Patch Adh..Patch TRANSDERMA 1 patch DAILY TOM Administration Protocol Methadone HCl 25 mg 11/09/20 09:00 11/09/20 10:02 Methadone Hcl 1 Mg/0.1 Ml Oral.Conc PO 25 mg DAILY TOM Administration Morphine Sulfate 2 mg 11/08/20 11:22 11/09/20 14:06 Morphine Sulfate 2 Mg/Ml Cartridge IVPUSH 2 mg Q3H PRN Administration pain Pharmacy Consult 1 each 11/08/20 09:57 Consult Rx Vancomycin Dosing MISCELLANE DAILY PRN Consult order Rivaroxaban 10 mg 11/09/20 09:00 11/09/20 10:02 Rivaroxaban 10 Mg Tablet PO 10 mg DAILY TOM Administration Sodium Chloride 3 ml 11/08/20 16:00 11/09/20 15:21 0.9 % Sodium Chloride Flush 3 Ml Syringe IVFLUSH 3 ml QSHIFT TOM Administration Home Medications Medication Instructions Recorded Confirmed Last Taken Type No Known Home Meds 11/08/20 11/08/20 Unknown History Physical Exam Vital Signs: Vital Signs: Last Vital Signs Temp 97.9 F 11/09/20 15:18 Pulse 79 11/09/20 15:18 Resp 18 11/09/20 15:18 BP 106/65 11/09/20 15:18 Pulse Ox 98 11/09/20 15:18 Body Mass Index 20.9 Const: General: cooperative HENMT: Head: Yes normal to inspection Mouth: Normal oral and palatal mucosa present Resp: Effort & Inspection: normal respiratory effort Cardio: Rate: regular rate Rhythm: regular rhythm GI: Palpation (GI): Soft to palpation and nontender Skin: General skin exam: no rashes or lesions noted Extrem: Other: right upper arm amputation Results Labs CBC & Chem 7: 11/09/20 05:24 11/09/20 05:24 Labs: Short CBC 11/09/20 Range/Units 05:24 WBC 9.6 (4.8-10.8) X10*3/uL Hgb 10.5 L (14.0-18.0) g/dl Hct 30.4 L (42-52) % Plt Count 258 (160-400) X10*3/uL BMP 11/09/20 05:24 Sodium 138 Potassium 3.2 L Chloride 106 Carbon Dioxide 23 BUN 10 Creatinine 0.60 Calcium 8.8 Microbiology Microbiology Results: Microbiology 11/08/20 10:20 Blood - Venous Blood Culture - Preliminary 11/08/20 10:20 Blood - Venous Blood Culture - Preliminary Assessment and Plan (1) Bacteremia: Status: Acute Continue IV antibiotics including Vancomycin Check echo Check HIV,hepatitis C Consider MRI LS spine (2) Opioid use disorder: Status: Acute
--- NOTE | 2020-11-09 17:02 | P.EN_ITS ---
Event Note Date of Service: 11/09/20 Event Note: Addiciton follow up: patient appearing more comfortable today. Methadone 25mg QD ordered, patient reporting good effect. Appearing sedated when seen by this senior technical writer. Discussed with hospitalist, plan to decrease Klonopin dosing and eventually d/c Plan: -continue methadone 25mg QD -will continue to follow and titrate dose as necessary
[2020-11-09 21:59] LABS: Vancomycin Trough 3.6 mcg/mL (10.0-20.0)
[2020-11-09] MEDS: Potassium Chloride Packet 20 MEQ PACKET 40 MEQ PO (22:31)
--- NOTE | 2020-11-10 01:19 | P.EN_ITS ---
Event Note Date of Service: 11/10/20 Event Note: pt asking for intermittent pain med, For chronic back pain with ac moraima flare. Patient reports that the morphine 2 mg is not helping. Received 1 dose of 1 mg IV Dilaudid with no improvement. Will give him 1 more dose of IV Dilaudid 1 mg, lidocaine patch as well as Ativan as patient is becoming very belligerent, aggressive towards staff, and threatening AMA. Patient's pain meds and tolerance need to be reviewed and methadone may need to be increased
[2020-11-10] MEDS: LORazepam 2 MG/ML VIAL 1 MG IVPUSH (01:34)
[2020-11-10 01:35] VITALS: RESP 18
[2020-11-10] MEDS: HYDROmorphone HCl 1 MG/ML SYRINGE IVPUSH (01:35)
[2020-11-10] MEDS: Potassium Chloride Packet 20 MEQ PACKET 40 MEQ PO (01:35)
[2020-11-10] MEDS: Lidocaine 4 % Patch ADH..PATCH 1 PATCH TRANSDERMA ×3 (01:47→08:00)
[2020-11-10 03:07] VITALS: BP 123/77; PULSE 93; RESP 20; TEMP 37.1; O2SAT 98
[2020-11-10 04:05] VITALS: RESP 18
[2020-11-10] MEDS: Morphine Sulfate 2 MG/ML CARTRIDGE IVPUSH (04:05)
[2020-11-10] MEDS: hydrOXYzine HCL 25 MG TABLET PO (04:05)
[2020-11-10 07:13] VITALS: BP 98/55; PULSE 83; RESP 18; TEMP 36.6; O2SAT 99
[2020-11-10 07:19] LABS: Anion Gap 16 (12-20); Blood Urea Nitrogen 12 mg/dL (9-16); Calcium 9.6 mg/dL (8.4-10.2); Carbon Dioxide 21 mmol/L (22-29); Chloride 107 mmol/L (96-108); Creatinine Clr Calc Pharmacy 142.8; Estimated Glomerular Filt Rate > 60; Glucose Fasting 81 mg/dL (60-99); Potassium 3.9 mmol/L (3.3-5.1); Sodium 140 mmol/L (135-145)
[2020-11-10 07:22] LABS: Hematocrit 38.2 % (42-52); Mean Corpuscular HGB Conc 33.5 g/dl (31.0-36.0); Mean Corpuscular Hemoglobin 31.6 pg (27.0-33.0); Mean Corpuscular Volume 94.3 fL (80-98); Mean Platelet Volume 10.6 fL (9.4-12.4); Platelet Count 248 X10*3/uL (160-400); Red Blood Count 4.05 X10*6/uL (4.60-5.80); Red Cell Distribution Width 12.2 % (11.0-16.0); White Blood Count 10.4 X10*3/uL (4.8-10.8)
[2020-11-10 07:25] LABS: Hemoglobin 12.8 g/dl (14.0-18.0)
[2020-11-10] MEDS: Ibuprofen 400 MG TABLET PO (07:55)
[2020-11-10] MEDS: vancomycin HCL 1,250 MG in 0.9 % Sodium Chloride 250 ML 166.67 MG IV (07:55)
[2020-11-10] MEDS: Rivaroxaban 10 MG TABLET PO (07:56)
[2020-11-10] MEDS: 0.9 % Sodium Chloride Flush 3 ML SYRINGE IVFLUSH (08:00)
--- NOTE | 2020-11-10 13:37 | HO.PM.IMPN ---
Subjective Subjective Date of Service: 11/10/20 Interval History: seen and evaluated this morning Has troubles last night with withdrawal reporting he wants to leave AMA but convinced him to stay to wait for the result of the echo add finalizing his blood cultures denies any fever, chills Physical Exam Vital Signs: Vital Signs: Last Vital Signs Temp 98 F 11/10/20 07:13 Pulse 83 11/10/20 07:13 Resp 18 11/10/20 07:13 BP 98/55 L 11/10/20 07:13 Pulse Ox 99 11/10/20 07:13 Body Mass Index 20.9 Const: Other: Constitutional : Alert, oriented, not in distress Neck : Normal inspection, Supple Cardiovascular : RRR, S1 S2, no lower extremity edema Respiratory : Good bilateral air entry, no crackles Gastrointestinal: soft, lax, Normal bowel sounds, Non tender Skin : Warm/Dry, No rash skeletal, rt arm above elbow Neurological : Alert & oriented, No focal deficit Objective Data Labs CBC & Chem 7: 11/10/20 05:43 11/10/20 05:43 Labs: Laboratory Results - last 24 hr 11/09/20 11/10/20 11/10/20 21:00 05:43 05:43 WBC 10.4 RBC 4.05 L D Hgb 12.8 L D Hct 38.2 L D MCV 94.3 MCH 31.6 MCHC 33.5 RDW 12.2 Plt Count 248 MPV 10.6 Absolute Nucleated RBC 0.000 Nucleated RBC % (auto) 0.0 Sodium 140 Potassium 3.9 D Chloride 107 Carbon Dioxide 21 L Anion Gap 16 BUN 12 Creatinine 0.67 Estim Creat Clear Calc 142.8 Estimated GFR > 60 Fasting Glucose 81 Calcium 9.6 D Vancomycin Trough 3.6 L Microbiology Microbiology Results: Microbiology 11/08/20 10:20 Blood Culture - Preliminary Blood - Venous Staphylococcus aureus 11/08/20 10:20 Blood Culture - Preliminary Blood - Venous Staphylococcus aureus Quality Stroke Does the patient have a stroke diagnosis?: No VTE Prior VTE?: No VTE Risk Level:: Medical - moderate - high VTE Device Contraindication: Treatment Not Indicated VTE Drug Contraindication: N/A - Med Ordered Assessment and Plan (1) Opioid use disorder: Status: Acute (2) Bacteremia: Status: Acute Assessment and Plan: 35M presented with right sided chest pain, found to have pneuomnia, now growing GPC in 2/2 blood cultures Staph aureus bacteremia pneumonia in setting of IVDA continue vanc, ceftriaxone Staph aureus growing cultures, pending final sensitivity repeat culturesStill negative and pending Pending echo Id input appreciated, consider MRI to evaluate for the back pain opioid dependence with withdrawl started on methadone hcv, hiv negative DVT PPX Early ambulation
--- NOTE | 2020-11-10 13:47 | PM.EVENT ---
Event Note Date of Service: 11/10/20 Event Note: discharge summary Discharge diagnosis Staph aureus bacteremia Pneumonia Opioid withdrawal, polysubstance abuse The patient was admitted to the hospital for treatment of pneumonia. Blood cultures came back positive for Staph aureus but sensitivity still pending. The patient decided to leave against medical advice Even after explained to him he might from this infection.. I had to call him at his cell phone to discuss the treatment plan as he refused to come back to the hospital to receive IV antibiotics. I explained to him that oral antibiotics is not the 1st line treatment for this condition but he insisted on taking oral so I will cover him with 2 weeks of doxycycline. He was advised encouraged to come back to the hospital specially if he got sick.
--- NOTE | 2020-11-10 14:30 | CA_ITS ---
Transthoracic Echocardiogram Patient (Last, First, Middle): Miguel Gonzalez, Gender: Male Date of : 1985 Age: 35 Procedure Date: 11/10/2020 Procedure Type: Transthoracic Echocardiogram Location: [facility] [place] Height: 175.26 cm Weight: 64.41 kg BSA: 1.79 m2 Heart Rate: bpm BP: 120 / 62 mmHg Resident Athletic Trainer: Referring MD: Hussain Sousa MD Meter Shop Superintendent: Emile Williamson MD Symptoms: rule out endocarditis Study Quality: Fair ECG Rhythm: Sinus Conclusions: - 1. Normal LV systolic and diastolic function 2. Normal cardiac valvular Doppler 3. No clear evidence of vegetations on this study 4. Normal RV systolic pressure 5. No pericardial effusion Findings Left Ventricle Normal left ventricular size, thickness, and systolic function. The visually estimated ejection fraction is between 60-65%. Diastolic function is normal for age. Right Ventricle Normal right ventricular cavity size and systolic function. Atria Both atria are normal in size. There is no evidence of interatrial shunt. Aortic Valve Normal aortic valve structure and function. There is no aortic valve stenosis. There is no aortic valve regurgitation. Mitral Valve Normal mitral valve structure and function. There is trace mitral valve regurgitation. There is no mitral valve stenosis. Pulmonic Valve The pulmonic valve is likely normal. There is trace pulmonic valve regurgitation. Tricuspid Valve Normal tricuspid valve structure. There is trace tricuspid valve regurgitation. The right ventricular systolic pressure is normal. The right ventricular systolic pressure is 17 mmHg. Normal right atrial pressure. There is no evidence of pulmonary hypertension. Great Vessels All visible segments of the aorta are normal in size. The pulmonary artery was not well visualized. Venous The inferior vena cava is normal in size and collapses greater than 50% with inspiration. Pericardium/Pleural There is no evidence of pericardial effusion. Prior Study Comparison No prior study available for comparison. Measurements 2D Linear Measurements IVSd: 0.82 0.6-0.9/0.6-1.0 cm LVIDd: 5.11 3.9-5.3/4.2-5.9 cm LVIDd Index: 2.85 2.4-3.2/2.2-3.1 cm/m2 LVIDs: 3.34 2.0-3.6 cm LVPWd: 0.89 0.7-1.1 cm Ao Root: 3.30 2.1-3.5 cm LA Diam: 3.10 2.7-3.8/3.0-4.0 cm LAIDs Index: 1.73 1.5-2.3 cm/m2 LV Mass: 191.13 67-162/88-224 g LV Mass Index: 106.78 43-95/49-115 g/m2 LVOT Diam: 2.50 3.0+(-)1.3 cm Mitral Valve MV Pk E: 0.85 MV PK A: 0.73 MV Decel Time: 116.00 E/A: 1.20 E'Lateral: 14.30 E'Medial: 12.20 E/E' Med: 6.90 E/E' Lat: 5.90 PHT: 34.00 MVA PHT: 6.47 Decel Baldwin: 7.28 Aortic Valve AoV Pk Jose: 1.30 AoV Mn Jose: 0.85 AoV VTI: 0.26 AoV Pk Grad: 7.00 Aov Mn Grad: 3.00 CARROLL Cont.VTI: 3.81 LVOT LVOT Pk Jose: 1.04 LVOT Mn Jose: 0.66 LVOT VTI: 0.20 LVOT Pk Grad: 4.00 LVOT Mn Grad: 2.00 LVOT Diam: 2.50 LVOT Area: 4.91 Diastolic Function MV Pk E: 0.85 MV Pk A: 0.73 E/A: 1.20 E'Medial: 12.20 E/E' Med: 6.90 E' Laterial: 14.30 E/E' Lat: 5.90 Tricuspid Valve TR Pk Joes: 1.85 TR Pk Grad: 14.00 RA Press: 3.00 RVSP: 17.00 Great Vessels Aorta Ao Root-2D: 3.30 2.0-3.7 cm Ao Asc: 3.10 2.1-3.4 cm Pulmonary Valve PV Pk Jose: 1.00 Peak PV Grad: 4.00 Updated in Other Vendor System with Status of Final Emile Williamson MD electronically signed on 11/10/2020 12:57:09 PM with status of Final
--- NOTE | 2020-11-10 15:11 | PM.EVENT ---
Event Note Date of Service: 11/10/20 Event Note: Addiction follow up: Patient seen this morning. Reporting he had a challenging evening due to pain. Received methadone dose earlier this morning, with good effect. At time of follow up patient was having a cardiac echo. HE reported that he was considering leaving today, but would wait until he met with the provider--stated he was worried about his dog and he wanted to go home and take care of him. Patient stated he would wait and coordinate outpatient care with [facility] team prior to leaving if he decided to leave. An hour late, patient apparently left and linkage to community OTP was not completed. Team will attempt to follow up
== END 2020-11-10 10:21 | disposition left against medical advice (07) | DRG 139 ==
LOC: HO.ED 11:41 → HO.EDOVER 12:05 → HO.IMC 14:40
PROVIDERS: Emergency Medicine Emergency Medical Services; Admitting Provider Internal Medicine; Emergency Provider Emergency Medicine Emergency Medical Services; Visit Provider Student in an Organized Health Care Education/Training Program
DX: J18.9 Pneumonia, unspecified organism (principal); R78.81 Bacteremia; F11.23 Opioid dependence with withdrawal; B95.61 Methicillin susceptible Staphylococcus aureus infection as the cause of diseases classified elsewhere; F17.210 Nicotine dependence, cigarettes, uncomplicated; Z20.822 Contact with and (suspected) exposure to COVID-19; Z71.6 Tobacco abuse counseling
CPT/HCPCS: 36415; 71045; 71275; 80048; 80076; 80202; 81003; 83605; 84484; 85025; 85027; 85379; 85610; 86803; 87040; 87077; 87186; 87205; 87389; 87635; 93005; 93306; 99285; J0696; J1170; J1885; J2060; J2270; J3370; Q9967

== ENCOUNTER 2022-03-15 22:44 | Emergency (ER) | payer MEDICAID, SELFPAY ==
[2022-03-15 23:03] VITALS: BP 115/75; PULSE 87; RESP 15; TEMP 37.3; O2SAT 97
[2022-03-15 23:05] VITALS: BMI 19.9
--- NOTE | 2022-03-15 23:07 | PC.NURSE ---
Patient arrives via EMS after overdosing on heroin, his friends gave him 2mg nasal narcan and patient awoke. patient now awake, oriented x4. states he was sober for 2 years and then tonight did 1 bag of heroin. he states he feels fine and wants to go home and continue with sobriety.
--- NOTE | 2022-03-15 23:32 | ED.GENADULT ---
HPI - General Adult General Chief complaint: Overdose Stated complaint: ?OD,NARCAN GIVEN BY FRIEND W/GOOD RESULT Time Seen by Provider: 03/15/22 23:26 Source: patient Limitations: no limitations History of Present Illness HPI narrative: This is a 36-year-old male who alleges he had been clean for about a year but a friend convinced him to do a bag of heroin. The patient states that he apparently did become unconscious and his friend did CPR given Narcan. When EMS arrived he was up and around and talking any states he tried to refuse to come to the ED but they insisted that he had to come. Denies any complaints at this time. Denies any headache, chest pain, shortness of breath, abdominal pain, nausea, vomiting. He denies any suicidal ideation or attempt Related Data Previous Rx's Medication Instructions Recorded doxycycline monohydrate 100 mg 100 mg PO BID 2 weeks #28 caps 11/10/20 capsule naloxone 4 mg/actuation nasal 4 mg intranasal Q2M PRN opioid 03/16/22 spray (Narcan) overdose #2 ea Allergies Allergy/AdvReac Type Severity Reaction Status Date / Time No Known Allergies Allergy Verified 11/08/20 04:31 Review of Systems Review of Systems: Yes all other systems are reviewed and are negative Constitutional: Constitutional: Reports as per HPI and Denies fever(s) Eyes: Eyes: Reports as per HPI and Reports no additional eye complaints ENT: Reports system reviewed and no additional complaints, except as documented, Reports as per HPI, Denies nasal congestion, Denies nasal discharge and Denies sore throat Cardiovascular: Cardiovascular: Reports as per HPI, Denies chest pain and Denies dyspnea Respiratory: Respiratory: Reports as per HPI, Denies cough and Denies dyspnea Gastrointestinal: Gastrointestinal: Reports as per HPI, Denies abdominal pain, Denies diarrhea and Denies vomiting Genitourinary: Genitourinary: Reports as per HPI, Denies hematuria, Denies dysuria and Denies urinary frequency Musculoskeletal: Musculoskeletal: Reports no additional musculoskeletal complaints and Denies numbness Integumentary/Breasts: Skin/Breast: Reports as per HPI and Denies rash Neurologic: Reports as per HPI, Denies focal weakness and Denies numbness Psychiatric: Psychiatric: Reports no additional psychiatric complaints and Reports as per HPI Endocrine: Endocrine: Reports no additional endocrine complaints and Reports as per HPI Hematologic/Lymphatic: Hematologic/Lymphatic: Reports no additional hematologic/lymphatic complaints, Reports as per HPI and Reports other (No peripheral edema) [facility] Past Medical History Medical History Amputation of arm Surgical History History of lung surgery Social History Social History Household Members: Friend(s) Housing: House Alcohol intake: never Patient Tobacco Use Status: Current everyday Tobacco user Tobacco use type: Cigarette Cigarette Packs Per Day: 0.3 Cigarettes Per Day: 6.0 Use of substances other than those prescribed or required for medical reasons: Yes Substance Use Type: Heroin Advance Directives: No Physical Exam ED Vital Signs: Vital Signs - 24 hr 03/15/22 23:03 03/16/22 00:22 Temperature 99.2 F 97.7 F Pulse Rate 87 79 Respiratory Rate 15 14 Blood Pressure 115/75 100/62 Pulse Oximetry 97 96 Oxygen Delivery Method Room Air Room Air BMI result Body Mass Index 19.9 Const General: no acute distress Orientation/consciousness: patient oriented x3 HENMT Head: Yes normal to inspection General nose exam: Normal external nose present Mouth: moist mucous membranes Throat: Yes posterior oropharynx normal, Yes tonsils normal and Yes uvula midline Eyes Eyelids: Yes eyelids normal Conjunctivae: conjunctivae normal Pupils: Equal, round and reactive pupils present Neck Neck: Yes supple Resp Effort & Inspection: normal respiratory effort Auscultation: clear to auscultation bilaterally Cardio Rate: regular rate Rhythm: regular rhythm Heart sounds: S1 normal heart sound present, S2 normal heart sound present, no gallops, no murmurs and no rubs GI Inspection: No distended Palpation (GI): Soft to palpation and nontender Auscultation: normal bowel sounds Skin General skin exam: other (Warm and dry) Neuro General: patient oriented x3 and CN's II-XI intact bilaterally Cranial nerves: Yes Equal, round and reactive pupils present Extrem General: Yes no pedal edema Psych Affect: normal affect Attitude: cooperative Medical Decision Making MDM Narrative Medical decision making narrative: Patient observed for 2-1/2 hours after he was given Narcan, remained alert. Patient is being prescribed Narcan. Discharge Plan Discharge Clinical Impression: Opioid use disorder Patient Disposition: Home, Self-Care Instructions: Opioid Use Disorder (ED) Additional Instructions: Using Narcan as needed for any overdose symptoms. Up with your primary care physician Prescriptions: New naloxone [Narcan] 4 mg/actuation spray,non-aerosol 4 mg intranasal Q2M PRN (Reason: opioid overdose) Qty: 2 0RF Rx Instructions: spray 1 dose into ONE nostril; alternate nostrils w each dose until help arrives No Action doxycycline monohydrate 100 mg capsule 100 mg PO BID 14 Days Qty: 28 0RF Interventions: ED Discharge Assessment Last Done: 03/16/22 00:55 Discharge Date/Time: 03/16/22 01:02
[2022-03-16 00:22] VITALS: BP 100/62; PULSE 79; RESP 14; TEMP 36.5; O2SAT 96
== END 2022-03-16 01:02 | disposition home or self-care (01) ==
PROVIDERS: Emergency Provider Emergency Medicine
DX: T40.1X1A Poisoning by heroin, accidental (unintentional), initial encounter (principal); Y92.9 Unspecified place or not applicable; Z79.899 Other long term (current) drug therapy; F17.210 Nicotine dependence, cigarettes, uncomplicated; Z71.6 Tobacco abuse counseling; Z71.51 Drug abuse counseling and surveillance of drug abuser
CPT/HCPCS: 99283; 99284